=== PATIENT | female | born 1955 | race Asian ===

== ENCOUNTER 2020-07-15 12:34 | Emergency (ER) | payer OTHER ==
[~2020-07-15] VITALS: Ht 154.9 cm; Wt 81.6 kg
[2020-07-15 12:51] VITALS: Ht 154.9 cm; Wt 81.6 kg
[2020-07-15 18:24] LABS: microscopic required? YES; urine erythrocyte 2+ (NEGATIVE)
[2020-07-15 18:45] VITALS: BP 13/47
== END 2020-07-15 19:19 | disposition home or self-care (01) ==
LOC: ED 12:34
PROVIDERS: Emergency Medicine
DX: N39.0 Urinary tract infection, site not specified (principal); S39.012A Strain of muscle, fascia and tendon of lower back, initial encounter; X58.XXXA Exposure to other specified factors, initial encounter; Y93.89 Activity, other specified; Y92.89 Other specified places as the place of occurrence of the external cause; Y99.8 Other external cause status
CPT/HCPCS: J1885